=== PATIENT | female | born 1995 | race American Indian/Alaskan Native ===

== ENCOUNTER 2021-12-11 18:35 | Outpatient (CLI) | payer MEDICAID ==
[2021-12-11 18:58] VITALS: BP 117/69
[2021-12-11] MEDS ORDERED: LACTATED RINGERS 500 ML IV ONE (19:30)
[2021-12-11 22:26] LABS: Bilirubin,Urine NEG (Negative); Blood,Urine NEG (Negative); Color,Urine Yellow (Yellow)
[2021-12-11 22:34] LABS: RBC,Urine < 1.0 /HPF (0.0-6.0); WBC,Urine < 1.0 /HPF (0.0-6.0)
== END 2021-12-12 00:07 | disposition left against medical advice (07) ==
LOC: TRG 18:35 → APU 18:36 → TRG 12-12 00:07
PROVIDERS: ATTEND Obstetrics & Gynecology
DX: O26.893 Other specified pregnancy related conditions, third trimester (principal); R10.9 Unspecified abdominal pain; Z3A.31 31 weeks gestation of pregnancy
CPT/HCPCS: 59025; 81001